=== PATIENT | female | born 2000 | race Caucasian/White ===

== ENCOUNTER 2018-10-13 02:08 | Emergency (ER) | payer OTHER ==
--- NOTE | 2018-10-13 03:02 | ED ---
Substance Abuse/Use - HPI Summary HPI Summary: Pt is a 18 y/o F presenting to the ED with a chief complaint of substance abuse. She was brought in by her friends, who state that the intention was to go to a green party with her, but they lost her, and when they found her again, she was very intoxicated. Her friends are worried about a possible drug ingestion. The pt reports that she only drank alcohol, and that anything else in her system was not taken intentionally. She reports slight nausea. She denies fevers. - History Of Current Complaint Chief Complaint: EDSubstanceAbuse Stated Complaint: DRUNK/PUKING PER FRIENDS Time Seen by Provider: 10/13/18 02:31 Hx Obtained From: Patient, Other: - friends Onset/Duration of Drug/ETOH Abuse: Hours Overdose Characteristics: Oral Timing Of Abuse: Binge Use Severity Initially: Moderate Severity Currently: Moderate Character: Stuporous Aggravating Factor(s): Nothing Alleviating Factor(s): Nothing Associated Signs And Symptoms: Nausea - Allergies/Home Medications Allergies/Adverse Reactions: Allergies Allergy/AdvReac Type Severity Reaction Status Date / Time No Known Allergies Allergy Verified 10/13/18 02:11 PMH/Surg Hx/FS Hx/Imm Hx Previously Healthy: Yes Endocrine/Hematology History: Denies: Hx Diabetes Cardiovascular History: Denies: Hx Hypertension Infectious Disease History: No Infectious Disease History: Denies: Traveled Outside the [place] in Last 30 Days - Family History Known Family History: Negative: Hypertension - Social History Occupation: Student Alcohol Use: Occasionally Hx Substance Use: No Substance Use Type: Reports: None Review of Systems Negative: Fever Positive: Nausea All Other Systems Reviewed And Are Negative: Yes Physical Exam - Summary Physical Exam Summary: Appearance: Well-appearing, Well-nourished, lying in bed comfortably Skin: Warm, dry, no obvious rash Eyes: sclera anicteric, no conjunctival pallor ENT: mucous membranes moist, pharynx appears normal Neck: Supple, nontender Respiratory: Clear to auscultation, no signs of respiratory distress Cardiovascular: Normal S1, S2. No murmurs. Normal distal pulses in tibial and radial bilaterally. Abdomen: Soft, nontender, normal active bowel sounds present Musculoskeletal: Normal, Strength/ROM Intact Neurological: A&Ox3, awake and alert, mentation is normal, speech is fluent and appropriate Psychiatric: affect is normal, does not appear anxious or depressed Triage Information Reviewed: Yes Vital Signs On Initial Exam: Initial Vitals Temp Pulse Resp BP Pulse Ox 97.9 F 124 20 137/92 98 10/13/18 02:09 10/13/18 02:09 10/13/18 02:09 10/13/18 02:10/13/18 02:09 Vital Signs Reviewed: Yes Diagnostics - Vital Signs Vital Signs Temp Pulse Resp BP Pulse Ox 10/13/18 02:09 97.9 F 124 20 137/92 98 - Laboratory Lab Statement: Any lab studies that have been ordered have been reviewed, and results considered in the medical decision making process. Course/Dx - Course Course Of Treatment: Pt is a 18 y/o F presenting to the ED with a chief complaint of substance abuse. She was brought in by her friends, who state that the intention was to go to a green party with her, but they lost her, and when they found her again, she was very intoxicated. Her friends are worried about a possible unintentional drug ingestion. The pt reports that she only drank alcohol, and that anything else in her system was not taken intentionally. She reports slight nausea. She denies fevers. Pt's physical exam is normal. Upon sobriety and waking up, pt will be d/c'ed with dx of alcohol intoxication. - Diagnoses Provider Diagnoses: Alcohol intoxication Discharge ED - Sign-Out/Discharge Documenting (check all that apply): Patient Departure Patient Received Moderate/Deep Sedation with Procedure: No - Discharge Plan Condition: Improved Disposition: HOME Patient Education Materials: Alcohol Intoxication (ED) Referrals: [facility] @ [Outside] Additional Instructions: PLEASE FOLLOW UP WITH [facility] AT [facility] IN 2-3 DAYS AND RETURN TO THE EMERGENCY DEPARTMENT FOR ANY NEW OR WORSENING SYMPTOMS. - Billing Disposition and Condition Condition: IMPROVED Disposition: Home - Attestation Statements Document Initiated by Scribe: Yes Documenting Scribe: Roxana Hayes Provider For Whom Jayy is Documenting (Include Credential): Derian Mckenzie MD. Scribe Attestation: Roxana Castro scribed for Derian Mckenzie MD. on 10/14/18 at 0524. Scribe Documentation Reviewed: Yes Provider Attestation: The documentation as recorded by the Roxana yan accurately reflects the service I personally performed and the decisions made by me, Derian Mckenzie MD. Status of Scribe Document: Viewed
[2018-10-13 03:17] LABS: Alcohol 238 mg/dL (<10)
[2018-10-13 03:20] LABS: HCG Pregnancy < 0.60 mIU/mL
[2018-10-13 08:37] VITALS: BP 112/57
--- NOTE | 2018-10-13 08:37 | ED ---
Progress - Progress Note Progress Note: This pt is a sign out from Dr. Mckenzie to Dr. Mazariegos at shift change 0700 10/13/18 pending a sobriety. The pt was walked successfully at 0835 and will be discharged back to [facility] with her friend. Course/Dx - Course Course Of Treatment: Pt is a 18 y/o F presenting to the ED with a chief complaint of substance abuse. She was brought in by her friends, who state that the intention was to go to a [place] with her, but they lost her, and when they found her again, she was very intoxicated. Her friends are worried about a possible unintentional drug ingestion. The pt reports that she only drank alcohol, and that anything else in her system was not taken intentionally. She reports slight nausea. She denies fevers. Pt's physical exam is normal. Upon sobriety and waking up, pt will be d/c'ed with dx of alcohol intoxication. - Diagnoses Provider Diagnoses: Alcohol intoxication Discharge ED - Sign-Out/Discharge Documenting (check all that apply): Patient Departure - discharge Patient Received Moderate/Deep Sedation with Procedure: No - Discharge Plan Condition: Improved Disposition: HOME Patient Education Materials: Alcohol Intoxication (ED) Referrals: [facility] @ [Outside] Additional Instructions: PLEASE FOLLOW UP WITH [facility] AT [facility] IN 2-3 DAYS AND RETURN TO THE EMERGENCY DEPARTMENT FOR ANY NEW OR WORSENING SYMPTOMS. - Billing Disposition and Condition Condition: IMPROVED Disposition: Home - Attestation Statements Document Initiated by Jayy: Yes Documenting Scribe: Howie Dominguez Provider For Whom Jayy is Documenting (Include Credential): Derian Mazariegos MD Scribe Attestation: IHowie, scribed for Derian Mazariegos MD on 10/13/18 at 0839. Scribe Documentation Reviewed: Yes Provider Attestation: The documentation as recorded by the Howie yan accurately reflects the service I personally performed and the decisions made by me, Derian Mazariegos MD Status of Scribe Document: Viewed
== END 2018-10-13 08:39 | disposition home or self-care (01) ==
LOC: ED 02:08
DX: F10.129 Alcohol abuse with intoxication, unspecified (principal); R11.0 Nausea
CPT/HCPCS: 36415; 80320; 84702; 99282; G0480